=== PATIENT | female | born 1960 ===

== ENCOUNTER 2024-10-17 11:45 | Inpatient (IN) | payer SELFPAY ==
[~2024-10-17] VITALS: Ht 165.1 cm; Wt 112.8 kg
[2024-10-17 14:36] VITALS: BP 155/109
[2024-10-17] MEDS ORDERED: DiphenhydrAMINE HCl 50 MG/ML 1ML Vial IM PRN (14:45)
[2024-10-17] MEDS ORDERED: Aluminum Hydroxide 320MG/5ML 473 ML PO PRN (14:45)
[2024-10-17] MEDS ORDERED: Ondansetron 4 MG SoluTab MM PRN (14:50)
[2024-10-17] MEDS ORDERED: Polyethylene Glycol 3350 17 gm PO PRN (14:50)
[2024-10-17] MEDS ORDERED: Haloperidol Lactate Inj. 5 MG/ML Injection IM PRN (14:55)
[2024-10-17] MEDS ORDERED: ATOR10 PO (16:03)
[2024-10-17] MEDS ORDERED: BACL20 PO (16:03)
[2024-10-17] MEDS ORDERED: FURO40 PO (16:06)
[2024-10-17] MEDS ORDERED: GABA300 PO (16:07)
[2024-10-17] MEDS ORDERED: LEFL20 PO (16:08)
[2024-10-17] MEDS ORDERED: LOSA50 PO (16:09)
[2024-10-17] MEDS ORDERED: OMEP20ER PO (16:17)
[2024-10-17] MEDS ORDERED: NAPR500 PO (16:17)
[2024-10-17] MEDS ORDERED: OXYC10ER PO (16:38)
[2024-10-17] MEDS ORDERED: PSEUDOEPHEDRIN120 MG PO (16:39)
[2024-10-17] MEDS ORDERED: PROM25 (16:39)
[2024-10-17] MEDS ORDERED: PROM25 PO (16:39)
[2024-10-17] MEDS ORDERED: SULF500 PO (16:40)
[2024-10-17] MEDS ORDERED: ALDACTONE100 MG PO (16:40)
[2024-10-17 16:58] VITALS: BP 155/109
--- NOTE | 2024-10-17 17:33 | NUR ---
ADMIT NOTE PT ARRIVED TO [facility] AT 1423 COMING FROM [facility]. PT WAS CHANGED TO OUR SCRUBS, SKIN/HAIR CHECK WITH DINA Kee 6x6cm NEW BRUISING TO UNDER ARM NEAR L AXILLA AND LATE STAGE HEALING 2x2cm BRUISE TO BACK OF LOWER L LEG. PT ARRIVED TO [facility] YESTERDAY WITH NEW ONSET OF PSYCHOSIS AND DILUSIONAL BEHAVIOR AFTER STARTING NEW MEDS 3 DAYS PRIOR. PT STS SHE WAS EXTREMELY STRESSED WITH LIFE, WENT TO HER PCP FOR HELP. SHE STARTED BUSPAR AND HYDROXAZINE, ONLY TOOK A FEW DOSES. SHE BECAME INCREASINGLY DELUSIONAL WITH INSOMNIA AND AVH ENDORSED. DENIES HX OF ANY MENTAL ILLNESS EVERY IN HER PAST. 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 PT IS CLEAR AND A&Ox4 DURING INTAKE. SHE ACKNOWLEDGES WHAT HAPPENED AND STS SHE JUST WENT OFF THE RAIL, DOESN'T WANT TO EVER TAKE BUSPAR AND HYDROXAZINE AGAIN. STS SHE HAS NEVER FELT LIKE THAT IN HER LIFE. SPOKE WITH , HE STATES HER BEHAVIOR YESTERDAY WAS "LIKE A DEMON HAD POSSESED HER" AND THAT WHEN HE TALKED WITH HER THIS AM, SHE WAS COMPLETLEY NORMAL. MED REC UPDATED AND PT CONSULT WITH [facility] WAS PLACED. HE VERBALLY ORDERED TWO MEDS FOR HER RA, WHICH SHE HASN'T HAD FOR A COUPLE OF DAYS. PT WAS ORIENTED TO THE UNIT, STS UNDERSTANDING OF Q15 CHECKS, DAILY SCHEDULE.
[2024-10-17 20:46] VITALS: BP 99/64
--- NOTE | 2024-10-18 04:30 | NUR ---
Patient is alert and oriented times four. She has some remembrance of the previous night at [facility], but did not appear to have any residual psychosis from the episode. She did require two of oxycodone last night for back pain which provided good relief and allowed her to sleep. During evening assessment, She denied SI,HI and AVTH. She is hoping for an early discharge as she feels the episode was all due to her taking Buspar and Vistaril which she will (in her words) never take again. Will continue close observation every 15 minutes for safety and comfort.
[2024-10-18 07:45] VITALS: BP 187/97
[2024-10-18 07:56] VITALS: BP 189/114
[2024-10-18] MEDS ORDERED: Pseudoephedrine HCl 120 MG TabCR PO PRN (09:00)
[2024-10-18] MEDS ORDERED: Multivitamins 1 Tab PO SCH (09:00)
[2024-10-18 09:24] LABS: CHOL/HDL RATIO 2.5; Cholesterol 201 mg/dL (50-200); HDL Cholesterol 79 mg/dL (>39); LDL/HDL RATIO 1.3; Low Density Lipoprotein Chol 103 mg/dL (0-110); Triglycerides 96 mg/dL (30-160); Very Low Density Lipoprot Chol 19 mg/dL (6-32)
[2024-10-18 13:06] VITALS: BP 165/99
--- NOTE | 2024-10-18 17:47 | NUR ---
SHIFT SUMMARY PT HAS BEEN UP OFF/ON THROUGHOUT SHIFT. ATTENDED ALL GROUPS AND MEALS. SHE IS COMPLIANT WITH MEDICATIONS, HOWEVER STS SHE DOESN'T TAKE GABAPENTIN. SHE DID END UP TAKING ONE THIS AFTERNOON FOR PAIN. BP THIS AFTERNOON WAS 165/97, HR 100. BP AT [facility] WAS VERY HIGH BUT SHE HADN'T HAD BP MEDS FOR 4-5 DAYS. PT DENIES ALL SI/HI/AVH AND HAS RECEIVED Q15 MIN SAFETY CHECKS THROUGHOUT THE SHIFT
[2024-10-18 17:59] VITALS: BP 165/97
[2024-10-18 20:52] VITALS: BP 163/92
--- NOTE | 2024-10-19 04:44 | NUR ---
SHIFT SUMMARY pATIENT IS ALERT AND ORIENTED TIMES FOUR. SHE IS PLEASANT AND COOPERATIVE WITH STAFF AND HER PEERS. SHE DENIED SI,HI AND AVH DURING EVENING ASSESSMENT. SUFFERS WITH BACK PAIN AND JOINT PAIN FROM RHEMATOID ARTHRITIS AND WAS MEDICATED ONCE WITH TYLENOL AND HER GABAPENTIN, AND THEN AT MIDNIGHT WITH OXYCODONE. SLEPT WELL OVERNIGHT. WILL CONTINUE CLOSE OBSERVATION EVERY 15 MINUTES FOR SAFETY AND COMFORT
[2024-10-19 07:59] VITALS: BP 152/87
--- NOTE | 2024-10-19 12:56 | NUR ---
MID SHIFT SUMMARY PT IS TO DC TODAY, HER SISTER IS COMING TO PICK HER UP. SHE HAS BEEN COMPLIANT, ENGAGED AND A PLEASURE TO HAVE ON THE UNIT. DENIES SI/HI/AVH.
--- NOTE | 2024-10-19 15:27 | NUR ---
SHIFT ASSESSMENT: PT DENIED SI, HI AND AVH. SHE ENDORSED ANXIETY 2/10w AND PAIN LEVEL 5-6/10w. HER AFFECT WAS CALM AND EUTHYMIC AND SHE DESCRIBED HER MOOD , "ANXIOUS...READY TO GO HOME." PT HAS BEEN IN GROUPS AND IN THE PT MILIEU.
--- NOTE | 2024-10-19 17:08 | NUR ---
17:03 PT WAS DISCHARGED WITH ALL OF HER BELONGINGS AND HER PRINTED DISCHARGE INSTRUCTIONS. PT EXPRESSED UNDERSTANDING OF ALL OF HER INSTRUCTIONS. PT REPORTED READINESS FOR DISCHARGE.
== END 2024-10-19 17:03 | disposition home or self-care (01) | DRG 882 ==
LOC: BHU 11:45
PROVIDERS: ADMIT Psychiatry & Neurology Psychiatry
DX: F43.23 Adjustment disorder with mixed anxiety and depressed mood (principal); F19.959 Other psychoactive substance use, unspecified with psychoactive substance-induced psychotic disorder, unspecified; I10 Essential (primary) hypertension; E78.5 Hyperlipidemia, unspecified; K21.9 Gastro-esophageal reflux disease without esophagitis; M06.9 Rheumatoid arthritis, unspecified; R60.0 Localized edema; E11.9 Type 2 diabetes mellitus without complications; J44.9 Chronic obstructive pulmonary disease, unspecified; G89.29 Other chronic pain; Z79.899 Other long term (current) drug therapy
CPT/HCPCS: 36415; 80061; 83036; A9270